=== PATIENT | female | born 1980 | race Caucasian/White ===

== ENCOUNTER 2016-04-08 21:42 | Emergency (ER) | payer MEDICAID | END 2016-04-08 22:40 | disposition home or self-care (01) | LOC: D.ER 21:42 | DX: J45.901 Unspecified asthma with (acute) exacerbation (principal) ==

== ENCOUNTER 2016-11-14 10:56 | Emergency (ER) | payer MEDICAID ==
[2016-11-14 11:46] LABS: ALBUMIN 3.7 g/dL (3.4-5.0); ALKALINE PHOSPHATASE 56 U/L (46-116); ALT (SGPT) 18 U/L (10-68); BASOPHILS 0.4 % (0-2); BILIRUBIN - TOTAL 0.36 mg/dL (0.2-1.3); CALC OSMOLALITY 279 mosm/kg (275-300); CALCIUM 8.9 mg/dL (8.5-10.1); CARBON DIOXIDE 27.6 mmol/L (21.0-32.0); CHLORIDE - SERUM 104 mmol/L (98-107); CREATININE - SERUM 0.7 mg/dL (0.6-1.3); EOSINOPHILS 21.4 % (0-7); GLUCOSE 97 mg/dL (74-106); HEMATOCRIT 37.9 % (36.0-48.0); HEMOGLOBIN 12.2 g/dL (12-16); IMMATURE GRANULOCYTES 0.1 % (0-5); LYMPHOCYTES 26.6 % (15-50); MCH 25.7 pg (26.0-34.0); MCHC 32.2 g/dL (31.0-37.0); MONOCYTES 7.8 % (2-11); NEUTROPHILS 43.7 % (40-80); PLATELET COUNT 266 10x3/uL (130-400); POTASSIUM - SERUM 3.6 mmol/L (3.5-5.1); PROTEIN - SERUM 7.7 g/dL (6.4-8.2); RBC 4.74 10x6/uL (4.00-5.40); RDW 14.9 % (11.5-14.5); SODIUM 141 mmol/L (136-145); UREA NITROGEN 11 mg/dL (7-18); WBC 7.6 10x3/uL (4.8-10.8); eGFR NON AFRICAN AMERICAN > 90 mL/min (90-120)
== END 2016-11-14 13:03 | disposition home or self-care (01) ==
LOC: D.ER 10:56
PROVIDERS: Family Medicine
DX: J45.901 Unspecified asthma with (acute) exacerbation (principal)

== ENCOUNTER 2016-11-30 10:32 | Emergency (ER) | payer MEDICAID | END 2016-11-30 12:59 | disposition home or self-care (01) | LOC: D.ER 10:32 | DX: J45.901 Unspecified asthma with (acute) exacerbation (principal) ==

== ENCOUNTER 2016-12-11 11:43 | Emergency (ER) | payer MEDICAID | END 2016-12-11 13:15 | disposition home or self-care (01) | LOC: D.ER 11:43 | DX: R06.00 Dyspnea, unspecified (principal); J45.901 Unspecified asthma with (acute) exacerbation ==

== ENCOUNTER 2017-10-06 11:54 | Emergency (ER) | payer MEDICAID ==
[~2017-10-06] VITALS: Ht 165.1 cm; Wt 59.1 kg
[2017-10-06 11:56] VITALS: Ht 165.1 cm; Wt 59.1 kg
[2017-10-06 12:52] LABS: BASOPHILS 0.2 % (0-2); EOSINOPHILS 10.1 % (0-7); HEMOGLOBIN 13.7 g/dL (12-16); IMMATURE GRANULOCYTES 0.1 % (0-5); MCH 30.3 pg (26.0-34.0); MCHC 33.4 g/dL (31.0-37.0); MCV 90.7 fL (80.0-100.0); MEAN PLATELET VOLUME 10.4 fL (7.4-10.4); MONOCYTES 4.9 % (2-11); NEUTROPHILS 62.7 % (40-80); PLATELET COUNT 246 10x3/uL (130-400); RBC 4.52 10x6/uL (4.00-5.40); RDW 12.9 % (11.5-14.5); WBC 9.8 10x3/uL (4.8-10.8)
[2017-10-06 13:19] LABS: ALBUMIN 3.7 g/dL (3.4-5.0); ALKALINE PHOSPHATASE 52 U/L (46-116); ALT (SGPT) 17 U/L (10-68); BILIRUBIN - TOTAL 0.52 mg/dL (0.2-1.3); CALC OSMOLALITY 276 mosm/kg (275-300); CALCIUM 9.1 mg/dL (8.5-10.1); CARBON DIOXIDE 30.2 mmol/L (21.0-32.0); CHLORIDE - SERUM 103 mmol/L (98-107); CREATININE - SERUM 0.8 mg/dL (0.6-1.3); GLUCOSE 135 mg/dL (74-106); POTASSIUM - SERUM 3.6 mmol/L (3.5-5.1); PROTEIN - SERUM 7.4 g/dL (6.4-8.2); SODIUM 138 mmol/L (136-145); UREA NITROGEN 9 mg/dL (7-18); eGFR NON AFRICAN AMERICAN 85 mL/min (90-120)
[2017-10-06] MEDS ORDERED: PROVENTIL/2.5 MG/3 M INH (13:50)
[2017-10-06] MEDS ORDERED: XOPENEX 1.1.25 MG/3 UPD (13:50)
[2017-10-06] MEDS ORDERED: MEDROL DOSE PACK4 MG PO (13:50)
[2017-10-06 14:17] VITALS: BP 121/70
== END 2017-10-06 14:18 | disposition home or self-care (01) ==
LOC: D.ER 11:54
PROVIDERS: Emergency Medicine
DX: J45.901 Unspecified asthma with (acute) exacerbation (principal)

== ENCOUNTER 2018-07-16 02:22 | Emergency (ER) | payer SELFPAY ==
[~2018-07-16] VITALS: Ht 165.1 cm; Wt 63.5 kg
[~2018-07-16 02:22] MED LIST: MEDROL DOSE PACK4 MG PO; PROVENTIL/2.5 MG/3 M INH; XOPENEX 1.1.25 MG/3 UPD
[2018-07-16 02:24] VITALS: Ht 165.1 cm; Wt 63.5 kg
[2018-07-16] MEDS ORDERED: ALBUTEROL SULF8.5 GM INH (03:30)
[2018-07-16 03:37] VITALS: BP 122/77
[2018-07-16] MEDS ORDERED: ZPAK PO (17:08)
[2018-07-16] MEDS ORDERED: ALBUTEROL2.5 MG/3 M INH (17:08)
== END 2018-07-16 03:37 | disposition home or self-care (01) ==
LOC: D.ER 02:22
DX: J45.909 Unspecified asthma, uncomplicated (principal)

== ENCOUNTER 2018-07-16 15:42 | Emergency (ER) | payer SELFPAY ==
[~2018-07-16] VITALS: Ht 165.1 cm; Wt 63.6 kg
[~2018-07-16 15:42] MED LIST changes: +ALBUTEROL SULF8.5 GM INH
[2018-07-16 15:56] VITALS: BP 115/80; Ht 165.1 cm; Wt 63.6 kg
[2018-07-16] MEDS ORDERED: ALBUTEROL2.5 MG/3 M INH (17:08)
[2018-07-16] MEDS ORDERED: ZPAK PO (17:08)
== END 2018-07-16 17:59 | disposition home or self-care (01) ==
LOC: D.ER 15:42
DX: J45.901 Unspecified asthma with (acute) exacerbation (principal); Z76.0 Encounter for issue of repeat prescription

== ENCOUNTER 2019-06-01 15:11 | Emergency (ER) | payer SELFPAY ==
[~2019-06-01] VITALS: Ht 165.1 cm; Wt 65.9 kg
[~2019-06-01 15:11] MED LIST changes: +ALBUTEROL2.5 MG/3 M INH; +ZPAK PO
[2019-06-01 15:25] VITALS: BP 128/74; Ht 165.1 cm; Wt 65.9 kg
[2019-06-01] MEDS ORDERED: XOPENEX 1.1.25 MG/3 UPD (16:22)
[2019-06-01] MEDS ORDERED: ALBUTEROL2.5 MG/3 M INH (16:22)
== END 2019-06-01 16:40 | disposition home or self-care (01) ==
LOC: D.ER 15:11
DX: O26.891 Other specified pregnancy related conditions, first trimester (principal); Z3A.13 13 weeks gestation of pregnancy; J45.909 Unspecified asthma, uncomplicated